=== PATIENT | female | born 1995 | race American Indian/Alaskan Native ===

== ENCOUNTER 2018-02-17 16:16 | Emergency (ER) | payer MEDICAID ==
[2018-02-17 16:32] VITALS: BP 137/86
--- NOTE | 2018-02-17 21:07 | Emergency Department Report ---
ED Female HPI - General Chief complaint: Pain General Stated complaint: CONSTIPATION, BLEEDING FROM ANUS AND PAIN WITH URI Time Seen by Provider: 02/17/18 20:39 Source: patient, family Mode of arrival: Ambulatory Limitations: No Limitations - History of Present Illness Initial comments: This is a 23-year-old female here complaining of constipation for 2 weeks. She is also complaining of pain after urinating. She reports she just started her menses today. Denies any nausea or vomiting. Denies any abdominal or back pain. No medication taken. Patient is a history of high blood pressure but denies being on any medication. Patient's here to be evaluated MD Complaint: dysuria, other (constipation) Onset/Timin -: week(s) Severity scale (0 -10): 0 Are you Now?: No Last Menstrual Period: 02/17/18 EDC: 11/24/18 Associated Symptoms: dysuria, other (constipation). denies: vaginal discharge, vaginal bleeding, abdominal pain, nausea/vomiting, fever/chills, headaches, loss of appetite, hematuria, rash, seizure, shortness of breath, syncope, weakness - Related Data Sexually active: No Previous Rx's Medication Instructions Recorded Last Taken Type Bisacodyl [Dulcolax] 10 mg PO ONCE 1 Days #2 tab 02/17/18 Unknown Rx Magnesium Citrate [Citrate of 300 ml PO ONCE 1 Days #1 bottle 02/17/18 Unknown Rx Magnesia] Nitrofurantoin [facility]/M-Cryst 100 mg PO Q12H 7 Days #14 capsule 02/17/18 Unknown Rx [Macrobid CAP] Allergies Allergy/AdvReac Type Severity Reaction Status Date / Time No Known Allergies Allergy Unverified 02/17/18 16:27 ED Review of Systems ROS: Stated complaint: CONSTIPATION, BLEEDING FROM ANUS AND PAIN WITH URI Other details as noted in HPI Constitutional: denies: chills, fever ENT: denies: throat pain, congestion Respiratory: denies: cough, shortness of breath, SOB with exertion, SOB at rest , wheezing Cardiovascular: denies: chest pain, palpitations, edema, syncope Gastrointestinal: constipation. denies: abdominal pain, nausea, vomiting, diarrhea, hematemesis, melena, hematochezia Genitourinary: dysuria. denies: urgency, frequency, hematuria, discharge, abnormal menses Musculoskeletal: denies: back pain, joint swelling, arthralgia, myalgia Skin: denies: rash, lesions Neurological: denies: headache, weakness ED Past Medical Hx - Past Medical History Previous Medical History?: Yes Hx Hypertension: Yes - Surgical History Past Surgical History?: No - Family History Family history: hypertension - Social History Smoking Status: Never Smoker Substance Use Type: Non Opiate Pain, Prescribed - Medications Home Medications: Home Medications Medication Instructions Recorded Confirmed Last Taken Type Bisacodyl [Dulcolax] 10 mg PO ONCE 1 Days #2 tab 02/17/18 Unknown Rx Magnesium Citrate [Citrate of 300 ml PO ONCE 1 Days #1 bottle 02/17/18 Unknown Rx Magnesia] Nitrofurantoin [facility]/M-Cryst 100 mg PO Q12H 7 Days #14 capsule 02/17/18 Unknown Rx [Macrobid CAP] ED Physical Exam - General Limitations: No Limitations General appearance: alert, in no apparent distress - Head Head exam: Present: atraumatic, normocephalic, normal inspection - Eye Eye exam: Present: normal appearance, PERRL, EOMI Pupils: Present: normal accommodation - ENT ENT exam: Present: normal exam, normal orophraynx, mucous membranes moist - Neck Neck exam: Present: normal inspection, full ROM. Absent: tenderness, lymphadenopathy - Respiratory Respiratory exam: Present: normal lung sounds bilaterally. Absent: respiratory distress, chest wall tenderness - Cardiovascular Cardiovascular Exam: Present: regular rate, normal rhythm, normal heart sounds. Absent: systolic murmur, diastolic murmur - GI/Abdominal GI/Abdominal exam: Present: soft, normal bowel sounds. Absent: distended, tenderness, guarding, rebound, rigid, organomegaly, mass, bruit, pulsatile mass , hernia - Extremities Exam Extremities exam: Present: normal inspection, full ROM, normal capillary refill , other (no clubbing, cyanosis or edema. Positive pulses all extremities and no neurovascular compromise). Absent: tenderness, pedal edema, joint swelling, calf tenderness - Back Exam Back exam: Present: normal inspection, full ROM. Absent: tenderness, CVA tenderness (R), CVA tenderness (L), muscle spasm, paraspinal tenderness, vertebral tenderness, rash noted - Neurological Exam Neurological exam: Present: alert, oriented X3, normal gait - Psychiatric Psychiatric exam: Present: normal affect, normal mood - Skin Skin exam: Present: warm, dry, intact, normal color. Absent: rash ED Course Vital Signs 02/17/18 02/17/18 16:28 23:10 Temperature 99 F Pulse Rate 70 64 Respiratory 18 16 Rate Blood Pressure 137/86 O2 Sat by Pulse 98 99 Oximetry - Reevaluation(s) Reevaluation #1: 02/17/18 23:02 Patient stable throughout ED course. She is able to tolerate oral liquids without any difficulties. ED Medical Decision Making - Lab Data Lab Results 02/17/18 Range/Units Unknown Urine Color Yellow (Yellow) Urine Turbidity Clear (Clear) Urine pH 5.0 (5.0-7.0) Ur Specific [place] 1.024 (1.003-1.030) Urine Protein 100 mg/dl (Negative) mg/dL Urine Glucose (UA) Neg (Negative) mg/dL Urine Ketones Neg (Negative) mg/dL Urine Blood Lg (Negative) Urine Nitrite Neg (Negative) Urine Bilirubin Neg (Negative) Urine Urobilinogen < 2.0 (<2.0) mg/dL Ur Leukocyte Esterase Lg (Negative) Urine WBC (Auto) > 182.0 H (0.0-6.0) /HPF Urine RBC (Auto) > 182.0 (0.0-6.0) /HPF U Epithel Cells (Auto) 1.0 (0-13.0) /HPF Urine Mucus Few /HPF Urine culture sent Patient started her menses today and she has large amount of urine and her blood - Radiology Data Radiology results: report reviewed Abdominal 2 view x-ray dictated by radiologist's report reviewed by myself. Please see report below. Patient: SO MOSS MR#: [id number] : 1995 Acct:[id number] Age/Sex: 23 / F ADM Date: 02/17/18 Loc: ED Attending Dr: Ordering Physician: CRISTOPHER BARNETT Date of Service: 02/17/18 Procedure(s): XR abdomen 2V Accession Number(s): [id number] cc: CRISTOPHER BARNETT Fluoro Time In Minutes: FINAL REPORT PROCEDURE: XR ABDOMEN 2V TECHNIQUE: Abdominal series, including supine and upright AP views. HISTORY: no bowel movement x 2 weeks COMPARISON: No prior studies are available for comparison. FINDINGS: Moderate amount of stool is seen scattered in large portions of the colon greater on the right side than the left. The patient may be constipated. No abnormal masses are seen. No air-fluid levels are identified. No evidence for bowel obstruction. No acute bony abnormalities are seen. IMPRESSION: Stool pattern as described. The patient may be constipated. No other abnormalities are identified.. Transcribed By: JEANN Dictated By: EMMANUELLE TORRES MD Electronically Authenticated By: EMMANUELLE TORRES MD Signed Date/Time: 02/17/182142 DD/ 42 TD/TT: 02/17/182142 - Medical Decision Making This is a 23-year-old female here complaining of constipation 2 weeks, painful urination. She denies any abdominal or back pain. Denies any vaginal bleeding or discharge. Patient reports that she started her menses today. Patient is here to be evaluated. She does not have a primary care physician Patient was screened and evaluated by myself. Physical exam normal except for distended abdomen but no other abnormality. Abdominal x-ray 2 views dictated by radiologist report reviewed by myself and shows constipation without any bowel obstruction. Stool is seen scattered in large portion of the colon greater on the right than the left otherwise no other ophthalmology seen. Urinalysis shows large amount of blood and patient is on her menses, large amount of leukocyte Estrace, positive protein, large amount of white blood cell. Urine culture sent. I discussed urinalysis and CT scan results the patient and also diagnosis and she voiced understanding. A/P Clinical Impression: 1: Acute cystitis with hematuria-patient is currently on her menses. Will discharge home on Macrobid. For all to primary care 2:Dysuria-positive UTI per urinalysis and culture sent. 3: Constipation-seen on abdominal x-ray 2 views. Tolerated fluids well, patient will be discharged home on Dulcolax tablets and magnesium citrate. Patient encouraged to increase fiber in her diet and increase her fluid intake. She will be referred to top precipitator operator helper Patient educated on diagnosis, medication, urinalysis findings, x-ray findings, high fiber diet, increase fluid intake ,treatment plan and she voiced understanding. Patient is stable and discharged home in stable condition with her family member. Vital signs are stable and she is afebrile, I discussed the patient that if symptoms worsen to return to the emergency room otherwise to follow-up with her primary care physician and top precipitator operator helper in 2 days. She voiced understanding. Patient discharged home with prescription for magnesium citrate , Dulcolax tablets and Macrobid. - Differential Diagnosis bowel obstruction, constipation, urinary tract infection Critical care attestation.: If time is entered above; I have spent that time in minutes in the direct care of this critically ill patient, excluding procedure time. ED Disposition Clinical Impression: Acute cystitis with hematuria, Dysuria Constipation Qualifiers: Constipation type: unspecified constipation type Qualified Code(s): K59.00 - Constipation, unspecified Disposition: DC- TO HOME OR SELFCARE Is pt being admited?: No Does the pt Need Aspirin: No Condition: Stable Instructions: Constipation (ED), Urinary Tract Infection in Women (ED), High Fiber Diet (ED), Dysuria (ED) Additional Instructions: Please increase her fluid intake. Take Dulcolax and magnesium citrate for constipation Take Macrobid for urinary tract infection See discharge instruction on high-fiber diet Follow-up with top precipitator operator helper regarding constipation Follow up with Primary care physician in 2 days. Return to the emergency room, if his symptoms worsen Prescriptions: Bisacodyl [Dulcolax] 10 mg PO ONCE 1 Days #2 tab Magnesium Citrate [Citrate of Magnesia] 300 ml PO ONCE 1 Days #[address] [facility]M-Cryst [Macrobid CAP] 100 mg PO Q12H 7 Days #14 capsule Referrals: PRIMARY CAREMD [Primary Care Provider] - 02/19/18 [facility] [Outside] - 02/19/18 [facility] [Provider Group] - 02/19/18 Forms: Work/School Release Form(ED)
[2018-02-17 21:42] LABS: Bilirubin,Urine NEG (Negative); Blood,Urine LG (Negative); Color,Urine Yellow (Yellow); Mucus,Urine FEW /HPF; Urobilinogen,Urine < 2.0 mg/dL (<2.0)
[2018-02-17 21:45] LABS: RBC,Urine > 182.0 /HPF (0.0-6.0); WBC,Urine > 182.0 /HPF (0.0-6.0)
--- NOTE | 2018-02-17 21:48 | XRay Report ---
FINAL REPORT PROCEDURE: XR ABDOMEN 2V TECHNIQUE: Abdominal series, including supine and upright AP views. HISTORY: no bowel movement x 2 weeks COMPARISON: No prior studies are available for comparison. FINDINGS: Moderate amount of stool is seen scattered in large portions of the colon greater on the right side than the left. The patient may be constipated. No abnormal masses are seen. No air-fluid levels are identified. No evidence for bowel obstruction. No acute bony abnormalities are seen. IMPRESSION: Stool pattern as described. The patient may be constipated. No other abnormalities are identified..
== END 2018-02-17 23:10 | disposition home or self-care (01) ==
LOC: ED 16:16
DX: N30.01 Acute cystitis with hematuria (principal); K59.00 Constipation, unspecified; I10 Essential (primary) hypertension
CPT/HCPCS: 74019; 81001; 87086

== ENCOUNTER 2018-03-10 17:19 | Emergency (ER) | payer MEDICAID ==
[2018-03-10 17:44] VITALS: BP 144/95
[2018-03-10 18:14] LABS: Bilirubin,Urine NEG (Negative); Blood,Urine NEG (Negative); Color,Urine Yellow (Yellow); Mucus,Urine FEW /HPF; Protein,Urine <15 mg/dL mg/dL (Negative); Urobilinogen,Urine < 2.0 mg/dL (<2.0)
[2018-03-10 18:28] LABS: HCG Qualitative,Urine Negative (Negative)
--- NOTE | 2018-03-10 21:13 | Emergency Department Report ---
ED Female HPI - General Chief complaint: Urogenital-Female Stated complaint: BURNING SENSATION W/ URINATION Time Seen by Provider: 03/10/18 21:13 Source: patient Mode of arrival: Ambulatory Limitations: No Limitations - History of Present Illness Initial comments: This is a 23-year-old -[place] female who presents for treatment of chlamydia. Patient states her boyfriend was diagnosed with chlamydia earlier today at a different hospital. She is requesting treatment for recent exposure. Patient denies vaginal discharge, low back pain, pelvic pain, frequency, urgency, dysuria, and fever. MD Complaint: possible STD Onset/Timin -: days(s) Severity: mild Severity scale (0 -10): 0 Improves with: none Worsens with: none Are you Now?: No Last Menstrual Period: 02/24/18 EDC: 12/01/18 Associated Symptoms: denies other symptoms - Related Data Sexually active: Yes : 1 Para: 1 A: 0 Previous Rx's Medication Instructions Recorded Last Taken Type Bisacodyl [Dulcolax] 10 mg PO ONCE 1 Days #2 tab 02/17/18 Unknown Rx Magnesium Citrate [Citrate of 300 ml PO ONCE 1 Days #1 bottle 02/17/18 Unknown Rx Magnesia] Nitrofurantoin [facility]/M-Cryst 100 mg PO Q12H 7 Days #14 capsule 02/17/18 Unknown Rx [Macrobid CAP] Allergies Allergy/AdvReac Type Severity Reaction Status Date / Time No Known Allergies Allergy Unverified 02/17/18 16:27 ED Review of Systems ROS: Stated complaint: BURNING SENSATION W/ URINATION Other details as noted in HPI Constitutional: denies: chills, fever Respiratory: denies: cough, shortness of breath, wheezing Cardiovascular: denies: chest pain, palpitations Gastrointestinal: denies: abdominal pain, nausea, vomiting, diarrhea Musculoskeletal: denies: back pain, joint swelling, arthralgia, myalgia Neurological: denies: headache, weakness, paresthesias Psychiatric: denies: anxiety, depression ED Past Medical Hx - Past Medical History Previous Medical History?: No Hx Hypertension: Yes - Surgical History Past Surgical History?: No - Social History Smoking Status: Never Smoker Substance Use Type: None - Medications Home Medications: Home Medications Medication Instructions Recorded Confirmed Last Taken Type Bisacodyl [Dulcolax] 10 mg PO ONCE 1 Days #2 tab 02/17/18 Unknown Rx Magnesium Citrate [Citrate of 300 ml PO ONCE 1 Days #1 bottle 02/17/18 Unknown Rx Magnesia] Nitrofurantoin [facility]/M-Cryst 100 mg PO Q12H 7 Days #14 capsule 02/17/18 Unknown Rx [Macrobid CAP] ED Physical Exam - General Limitations: No Limitations General appearance: alert, in no apparent distress - Respiratory Respiratory exam: Present: normal lung sounds bilaterally. Absent: respiratory distress - Cardiovascular Cardiovascular Exam: Present: regular rate, normal rhythm. Absent: systolic murmur, diastolic murmur, rubs, gallop - GI/Abdominal GI/Abdominal exam: Present: soft, normal bowel sounds. Absent: organomegaly, mass - Back Exam Back exam: Present: normal inspection. Absent: CVA tenderness (R), CVA tenderness (L) - Neurological Exam Neurological exam: Present: alert, oriented X3, normal gait - Psychiatric Psychiatric exam: Present: normal affect, normal mood - Skin Skin exam: Present: warm, dry, intact, normal color. Absent: rash ED Course Vital Signs 03/10/18 17:41 Temperature 98.3 F Pulse Rate 63 Respiratory 16 Rate Blood Pressure 144/95 O2 Sat by Pulse 100 Oximetry ED Medical Decision Making - Medical Decision Making This is a 23-year-old -[place] female who presents for treatment of chlamydia. Patient was examined by me. Vitals are stable and in no acute distress. Urinalysis and urine hcg obtained and unremarkable. Empirically treated with Rocephin 250 mg IM and azithromycin 1 g by mouth. Discharged home in stable condition. Discussed prevention options. F/U with PCP or Health Department. Critical care attestation.: If time is entered above; I have spent that time in minutes in the direct care of this critically ill patient, excluding procedure time. ED Disposition Clinical Impression: Exposure to STD Disposition: DC-01 TO HOME OR SELFCARE Is pt being admited?: No Does the pt Need Aspirin: No Condition: Stable Instructions: Safe Sex (ED), Sexually Transmitted Diseases (ED) Additional Instructions: Avoid drinking alcohol for 24 hours. Continue safe sexual intercourse. Follow up with Primary Care Provider or health department. Referrals: [facility] [Outside] - 3-5 Days [facility] [Outside] - 3-5 Days [facility] [Outside] - 3-5 Days Time of Disposition: 21:52 Print Language: NAMIBIAN
[2018-03-10] MEDS ORDERED: ZITHROMAX PO ONE (21:52)
[2018-03-10] MEDS ORDERED: ROCEPHIN IM ONE (21:52)
[2018-03-10] MEDS ORDERED: XYLOCAINE 1% MPF 5 mL INFILTRATI ONE (21:52)
== END 2018-03-10 22:30 | disposition home or self-care (01) ==
LOC: ED 17:19
DX: Z20.2 Contact with and (suspected) exposure to infections with a predominantly sexual mode of transmission (principal); I10 Essential (primary) hypertension
CPT/HCPCS: 81001; 81025; 96372; 99283; J0696

== ENCOUNTER 2019-03-10 14:20 | Outpatient (CLI) | payer OTHER ==
[2019-03-10 15:19] VITALS: BP 125/71
[2019-03-10] MEDS ORDERED: LACTATED RINGERS 1,000 ML ONE (15:28)
[2019-03-10] MEDS ORDERED: LACTATED RINGERS 500 ML IV ONE (16:16)
[2019-03-10 16:47] LABS: Bacteria,Urine 1+ /HPF (Negative); Bilirubin,Urine NEG (Negative); Blood,Urine NEG (Negative); Color,Urine Yellow (Yellow); Protein,Urine <15 mg/dL mg/dL (Negative); Urobilinogen,Urine < 2.0 mg/dL (<2.0)
[2019-03-10] MEDS ORDERED: LACTATED RINGERS 1,000 ML IV SCH (17:00)
--- NOTE | 2019-03-10 20:40 | Ultrasound Report ---
US OB limited, US OB BPP wo non-stress INDICATION: labor. Clinical gestational age of 36 weeks. COMPARISON: None available. FINDINGS: A single live intrauterine is noted with a heart rate of 158 bpm. The placenta is in a fund al position and appears unremarkable. Presentation is cephalic. The amniotic fluid index is normal an d measures 7-8 cm. The BPP is 8/8. IMPRESSION: Single live intrauterine with a BPP of 8/8. Signer Name: Nikhil Armas MD Signed: 03/10/2019 8:35 PM Workstation Name: [id number]
== END 2019-03-10 20:40 | disposition home or self-care (01) ==
LOC: EEVIPCON 14:20 → TRG 14:20
PROVIDERS: ATTEND Obstetrics & Gynecology
DX: O62.9 Abnormality of forces of labor, unspecified (principal); O13.3 Gestational [pregnancy-induced] hypertension without significant proteinuria, third trimester; Z3A.36 36 weeks gestation of pregnancy
CPT/HCPCS: 59025; 76815; 76819; 81001; 96360; 96361; J7120

== ENCOUNTER 2019-03-16 01:06 | Outpatient (CLI) | payer OTHER ==
[2019-03-16 01:58] LABS: Bilirubin,Urine NEG (Negative); Blood,Urine NEG (Negative); Color,Urine Yellow (Yellow); Mucus,Urine FEW /HPF; Protein,Urine <15 mg/dL mg/dL (Negative)
[2019-03-16] MEDS ORDERED: LACTATED RINGERS 1,000 ML IV ONE (02:27)
[2019-03-16 03:06] VITALS: BP 133/85
[2019-03-16 03:14] LABS: Amphetamine Screen,Urine PRESUMPTIVE NEGATIVE; Benzodiazepines Screen,Urine PRESUMPTIVE NEGATIVE; Cannabinoid Screen,Urine PRESUMPTIVE NEGATIVE; Cocaine Screen,Urine PRESUMPTIVE NEGATIVE; Methadone Screen,Urine PRESUMPTIVE NEGATIVE; Opiate Screen,Urine PRESUMPTIVE NEGATIVE
--- NOTE | 2019-03-16 04:00 | Ultrasound Report ---
Limited OB ultrasound for amniotic fluid volume FINDINGS: The CHELY is normal at 13.5 cm. Single fetus is identified in vertex presentation. hear t rate is 142 bpm. Signer Name: Rajan Dunaway MD Signed: 03/16/2019 3:56 AM Workstation Name: [id number]
--- NOTE | 2019-03-16 07:26 | Ultrasound Report ---
Biophysical profile FINDINGS: breathing, spontaneous motion, tone and amniotic fluid volume all show a score of 2 f or a total of 8/8. heart rate is 142 bpm. Signer Name: Rajan Dunaway MD Signed: 03/16/2019 7:22 AM Workstation Name: [id number]
== END 2019-03-16 04:32 ==
LOC: TRG 01:06 → EEVIPCON 01:06 → LD 01:18 → TRG 04:32
PROVIDERS: ATTEND Obstetrics & Gynecology
DX: O62.9 Abnormality of forces of labor, unspecified (principal); O13.3 Gestational [pregnancy-induced] hypertension without significant proteinuria, third trimester; Z3A.37 37 weeks gestation of pregnancy
CPT/HCPCS: 59025; 76815; 76819; 80307; 81001; 87086; 96360; J7120

== ENCOUNTER 2019-03-29 16:37 | Inpatient (IN) | payer OTHER ==
[2019-03-29] MEDS ORDERED: BRETHINE IVP PRN (17:22)
[2019-03-29] MEDS ORDERED: XYLOCAINE 2% INFILTRATI ONE (17:22)
[2019-03-29] MEDS ORDERED: MINERAL OIL PO PRN (17:22)
[2019-03-29] MEDS ORDERED: SUBLIMAZE IV PRN (17:22)
[2019-03-29] MEDS ORDERED: BRETHINE SUB-Q PRN (17:22)
[2019-03-29] MEDS ORDERED: ZOFRAN IV PRN (17:22)
[2019-03-29] MEDS ORDERED: AMPICILLIN/NS 2 GM/100 ML 2 GM/100 ML BAG IV ONE (17:22)
--- NOTE | 2019-03-29 17:51 | History and Physical Report ---
History of Present Illness Date of examination: 03/29/19 Date of admission: 03/29/2019 Chief complaint: IOL secondary to CHTN History of present illness: 24 yo @ 39 wks gestation who was sent from [facility] with reports of H/As, dizziness, swelling around left eye and seeing spots in visual garza x 1 night. Reports that prior to incarceration she received PNC at [facility], records not available. Her has been complicated by CHTN and GBS positive status. She reports she was taking Lisinopril 10 mg oral once daily, which was changed to labetelol 100 po BID after incarceration. 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: chlamydia Family/Genetic History: diabetes (Aunt), hypertension (mother and MGM), stroke (MGM and mother), cancer (PGM - breast Ca) Social history: full code - Obstetrical History Expected Date of Delivery: 04/04/19 Actual Gestation: 39 Week(s) 1 Day(s) : 2 Para: 1 Hx # Term Pregnancies: 1 Number of Pregnancies: 0 Spontaneous Abortions: 0 Induced : 0 Number of Living Children: 1 #1 Infant Gender: Female year: Birthweight: 3.005 kg Method of Delivery: Vaginal Gestational age at delivery: 39 (IOL secondary to HTN) Complications: none Medications and Allergies Allergies Allergy/AdvReac Type Severity Reaction Status Date / Time No Known Allergies Allergy Verified 03/16/19 01:35 Home Medications Medication Instructions Recorded Confirmed Last Taken Type Labetalol [Labetalol 100mg TAB] 100 mg PO BID 03/16/19 03/16/19 03/15/19 History Active Meds: Active Medications Butorphanol Tartrate (Stadol) 2 mg IV Q2H PRN PRN Reason: Pain , Severe (7-10) Ephedrine Sulfate (Ephedrine Sulfate) 10 mg IV Q2M PRN PRN Reason: Hypotension Fentanyl (Sublimaze) 100 mcg IV Q2H PRN PRN Reason: Labor Pain Oxytocin/Sodium Chloride (Pitocin/Ns 20 Unit/1000ml Drip) 20 units in 1,000 mls @ 125 mls/hr IV DIRECT SHANIQUE Oxytocin/Sodium Chloride (Pitocin/Ns 30 Unit/500ml) 30 units in 500 mls @ 2 mls/hr IV TITR SHANIQUE; Protocol Lactated Ringer's (Lactated Ringers) 1,000 mls @ 125 mls/hr IV DIRECT SHANIQUE Ampicillin Sodium (Ampicillin/Ns 2 Gm/100 Ml) 2 gm in 100 mls @ 100 mls/hr IV ONCE ONE; Protocol Stop: 03/29/19 18:21 Ampicillin Sodium (Ampicillin/Ns 1 Gm/50 Ml) 1 gm in 50 mls @ 100 mls/hr IV Q4HR SHANIQUE; Protocol Mineral Oil (Mineral Oil) 30 ml PO QHS PRN PRN Reason: Constipation Ondansetron HCl (Zofran) 4 mg IV Q8H PRN PRN Reason: Nausea And Vomiting Terbutaline Sulfate (Brethine) 0.25 mg SUB-Q ONCE PRN PRN Reason: Hyperstimulation/Hypertonicity Terbutaline Sulfate (Brethine) 0.25 mg IVP ONCE PRN PRN Reason: Hyperstimulation/Hypertonicity Review of Systems All systems: negative - Vital Signs Vital signs: Vital Signs Pulse BP 80 135/78 03/29/19 16:49 03/29/19 16:49 Temp Pulse Resp BP Pulse Ox 80 135/78 03/29/19 16:49 03/29/19 16:49 - Physical Exam Breasts: Positive: deferred Cardiovascular: Regular rate Lungs: Positive: Normal air movement Abdomen: Positive: other (gravid) Uterus: Positive: other (S=D) Extremities: Positive: normal Deep Tendon Reflex Grade: Normal +2 - Obstetrical FHR: category 1 Uterine Contraction Monitor Mode: External Cervical Dilatation: 3 Cervical Effacement Percentage: 60 station: -3 Uterine Contraction Frequency (min): 6-9 mins Uterine Contraction Pattern: Irregular Uterine Tone Measurement Phase: Resting Uterine Contraction Intensity: Mild Results All other labs normal. Assessment and Plan - Patient Problems (1) 39 weeks gestation of Current Visit: Yes Status: Acute Plan to address problem: Admit to [facility] for IOL secondary to CHTN GBS prophylaxis per policy Cervidil 10 mg vaginal x12 as tolerated Pain medication as desired Anticipate (2) Chronic hypertension affecting Current Visit: Yes Status: Acute Plan to address problem: Serial B/P's q hr Notify provider is B/Ps >160/110
[2019-03-29] MEDS ORDERED: PITOCin/NS 20 UNIT/1000ML DRIP 20 UNITS/1,000 ML BAG IV SCH (18:00)
[2019-03-29] MEDS ORDERED: PITOCin/NS 30 UNIT/500ML 30 UNITS/500 ML BAG IV SCH (18:00)
[2019-03-29] MEDS ORDERED: CERVIDIL VG ONE (18:52)
[2019-03-29] MEDS: LACTATED RINGERS 1,000 ML IV SCH (19:06)
[2019-03-29 19:50] LABS: Basophils % (Auto) 0.4 % (0.0-1.8); Eosinophils % (Auto) 0.7 % (0.0-4.3); Hematocrit 27.9 % (30.3-42.9); Hemoglobin 8.6 gm/dl (10.1-14.3); Lymphocytes # (Auto) 1.4 K/mm3 (1.2-5.4); Lymphocytes % (Auto) 23.3 % (13.4-35.0); Mean Corpuscular HGB Conc 31 % (30-34); Monocytes # (Auto) 0.6 K/mm3 (0.0-0.8); Monocytes % (Auto) 9.9 % (0.0-7.3)
[2019-03-29 20:04] LABS: Mean Corpuscular Volume 63 fl (79-97)
[2019-03-29 20:13] LABS: Alanine Aminotransferase 5 units/L (7-56); Uric Acid 3.5 mg/dL (3.5-7.6)
[2019-03-29 20:14] LABS: Hepatitis C Virus Antibody Non-Reactive (NonReactive)
[2019-03-29 22:56] LABS: Platelet Count 120 K/mm3 (140-440)
[2019-03-29] MEDS: AMPICILLIN/NS 1 GM/50 ML 1 GM/50 ML BAG IV SCH (23:35)
[2019-03-30] MEDS: STADOL IV PRN ×2 (03:31→08:49)
[2019-03-30] MEDS: AMPICILLIN/NS 1 GM/50 ML 1 GM/50 ML BAG IV SCH ×3 (03:42→10:41)
[2019-03-30 05:41] LABS: Bilirubin,Urine NEG (Negative); Blood,Urine NEG (Negative); Color,Urine Straw (Yellow); Protein,Urine <15 mg/dL mg/dL (Negative); Urobilinogen,Urine < 2.0 mg/dL (<2.0)
[2019-03-30 05:48] LABS: Amphetamine Screen,Urine PRESUMPTIVE NEGATIVE; Benzodiazepines Screen,Urine PRESUMPTIVE NEGATIVE; Cannabinoid Screen,Urine PRESUMPTIVE NEGATIVE; Cocaine Screen,Urine PRESUMPTIVE NEGATIVE; Methadone Screen,Urine PRESUMPTIVE NEGATIVE; Opiate Screen,Urine PRESUMPTIVE NEGATIVE
--- NOTE | 2019-03-30 10:15 | Progress Note ---
Assessment and Plan A: IUP @ 39 1/7 weeks Category I Tracing CHTN GBS Positive P: AROM Start Pitocin Augmentation Continue GBS Prophylaxis Subjective - Subjective Date of service: 03/30/19 Patient reports: movement normal, contractions Objective - Vital Signs Vital Signs: Vital Signs - 12hr 03/29/19 03/30/19 03/30/19 22:42 00:20 01:20 Temperature Pulse Rate 60 63 76 Blood Pressure 123/81 123/71 136/87 03/30/19 03/30/19 03/30/19 02:21 03:21 03:26 Temperature Pulse Rate 54 L 59 L 77 Blood Pressure 152/95 174/101 159/96 03/30/19 03/30/19 03/30/19 03:37 04:22 04:31 Temperature 98.6 F Pulse Rate 75 61 Blood Pressure 143/83 124/67 03/30/19 03/30/19 03/30/19 05:20 06:21 07:06 Temperature Pulse Rate 57 L 49 L 51 L Blood Pressure 119/72 141/93 138/95 03/30/19 03/30/19 03/30/19 07:21 07:51 08:20 Temperature 97.6 F Pulse Rate 50 L 68 Blood Pressure 140/93 146/97 03/30/19 10:08 Temperature Pulse Rate 78 Blood Pressure 134/90 - Exam Breasts: normal Cardiovascular: Regular rate Lungs: Clear to auscultation, Normal air movement Abdomen: Present: normal appearance, soft, normal bowel sounds Uterus: Present: normal, firm, fundal height above umbilicus FHR: category 1 Uterine Contraction Monitor Mode: External Cervical Dilatation: 3.5 (AROM of a moderate amount @ 1006) Cervical Effacement Percentage: 60 station: -2 Uterine Contraction Pattern: Irregular Uterine Tone Measurement Phase: Resting Uterine Contraction Intensity: Moderate Extremities: normal - Labs Labs: Abnormal Labs 03/29/19 03/29/19 19:27 19:27 Hgb 8.6 L Hct 27.9 L MCV 63 L MCH 20 L RDW 17.0 H Plt Count 120 L [place] % (Auto) 9.9 H Creatinine 0.5 L ALT 5 L Laboratory Results - last 24 hr 03/29/19 03/29/19 03/29/19 19:15 19:26 19:26 WBC RBC Hgb Hct MCV MCH MCHC RDW Plt Count Lymph % (Auto) [place] % (Auto) Eos % (Auto) Baso % (Auto) Lymph # [place] # Eos # Baso # Seg Neutrophils % Seg Neutrophils # Creatinine Estimated GFR Uric Acid AST ALT Lactate Dehydrogenase Urine Color Urine Turbidity Urine pH Ur Specific [place] Urine Protein Urine Glucose (UA) Urine Ketones Urine Blood Urine Nitrite Urine Bilirubin Urine Urobilinogen Ur Leukocyte Esterase Urine WBC (Auto) Urine RBC (Auto) U Epithel Cells (Auto) Urine Opiates Screen Urine Methadone Screen Ur Barbiturates Screen Ur Phencyclidine Scrn Ur Amphetamines Screen U Benzodiazepines Scrn Urine Cocaine Screen U Marijuana (THC) Screen Drugs of Abuse Note Hep Bs Antigen Non-reactive Hepatitis C Antibody Non-reactive HIV 1&2 Antibody Rapid HIV P24 Antigen Rubella IgG Antibody Immune Blood Type B POSITIVE Antibody Screen Negative 03/29/19 03/29/19 03/29/19 19:27 19:27 19:27 WBC 5.8 RBC 4.40 Hgb 8.6 L Hct 27.9 L MCV 63 L MCH 20 L MCHC 31 RDW 17.0 H Plt Count 120 L Lymph % (Auto) 23.3 [place] % (Auto) 9.9 H Eos % (Auto) 0.7 Baso % (Auto) 0.4 Lymph # 1.4 [place] # 0.6 Eos # 0.0 Baso # 0.0 Seg Neutrophils % 65.7 Seg Neutrophils # 3.8 Creatinine 0.5 L Estimated GFR > 60 Uric Acid 3.5 AST 12 ALT 5 L Lactate Dehydrogenase 149 Urine Color Urine Turbidity Urine pH Ur Specific [place] Urine Protein Urine Glucose (UA) Urine Ketones Urine Blood Urine Nitrite Urine Bilirubin Urine Urobilinogen Ur Leukocyte Esterase Urine WBC (Auto) Urine RBC (Auto) U Epithel Cells (Auto) Urine Opiates Screen Urine Methadone Screen Ur Barbiturates Screen Ur Phencyclidine Scrn Ur Amphetamines Screen U Benzodiazepines Scrn Urine Cocaine Screen U Marijuana (THC) Screen Drugs of Abuse Note Hep Bs Antigen Hepatitis C Antibody HIV 1&2 Antibody Rapid Non react HIV P24 Antigen Non react Rubella IgG Antibody Blood Type Antibody Screen 03/30/19 03/30/19 03:30 03:30 WBC RBC Hgb Hct MCV MCH MCHC RDW Plt Count Lymph % (Auto) [place] % (Auto) Eos % (Auto) Baso % (Auto) Lymph # [place] # Eos # Baso # Seg Neutrophils % Seg Neutrophils # Creatinine Estimated GFR Uric Acid AST ALT Lactate Dehydrogenase Urine Color Straw Urine Turbidity Clear Urine pH 7.0 Ur Specific [place] 1.005 Urine Protein <15 mg/dl Urine Glucose (UA) Neg Urine Ketones Neg Urine Blood Neg Urine Nitrite Neg Urine Bilirubin Neg Urine Urobilinogen < 2.0 Ur Leukocyte Esterase Tr Urine WBC (Auto) 3.0 Urine RBC (Auto) 1.0 U Epithel Cells (Auto) 2.0 Urine Opiates Screen Presumptive negative Urine Methadone Screen Presumptive negative Ur Barbiturates Screen Presumptive negative Ur Phencyclidine Scrn Presumptive negative Ur Amphetamines Screen Presumptive negative U Benzodiazepines Scrn Presumptive negative Urine Cocaine Screen Presumptive negative U Marijuana (THC) Screen Presumptive negative Drugs of Abuse Note Disclamer Hep Bs Antigen Hepatitis C Antibody HIV 1&2 Antibody Rapid HIV P24 Antigen Rubella IgG Antibody Blood Type Antibody Screen
[2019-03-30] MEDS: LACTATED RINGERS 1,000 ML IV SCH (10:42)
[2019-03-30] MEDS ORDERED: PITOCin/NS 30 UNIT/500ML 30 UNITS/500 ML BAG IV SCH (11:00)
[2019-03-30] MEDS ORDERED: MARCAINE 0.25% INFILTRATI ONE (11:20)
--- NOTE | 2019-03-30 11:41 | Anesthesia Consultation ---
Anesthesia Consult and Med Hx Date of service: 03/30/19 - Airway Anesthetic Teeth Evaluation: Good ROM Head & Neck: Adequate Mental/Hyoid Distance: Adequate Mallampati Class: Class II - Pulmonary Exam CTA: Yes - Cardiac Exam Cardiac Exam: RRR - Pre-Operative Health Status ASA Pre-Surgery Classification: ASA2, Emergency Proposed Anesthetic Plan: Epidural - Pulmonary Hx Asthma: No - Cardiovascular System Hx Hypertension: Yes (CHTN diagnosed at age 21, Pt has headache, dizzziness, and visiual changes) - Central Nervous System Hx Seizures: No Hx Psychiatric Problems: No - Endocrine Hx Renal Disease: No Hx Hypothyroidism: No Hx Hyperthyroidism: No - Hematic Hx Anemia: No Hx Sickle Cell Disease: No - Other Systems Hx Alcohol Use: No
[2019-03-30] MEDS ORDERED: NARCAN 2 MG/2 ML IV PRN (11:42)
[2019-03-30] MEDS ORDERED: fentaNYL-BUPIV 2 MCG/ML-0.125% 200 MCG/100 ML BAG EPIDURAL SCH (12:00)
[2019-03-30] MEDS ORDERED: DULCOLAX PR PRN (17:13)
[2019-03-30] MEDS ORDERED: TUCKS PAD TP PRN (17:13)
[2019-03-30] MEDS ORDERED: BENADRYL PO PRN (17:13)
[2019-03-30] MEDS ORDERED: LANSINOH TP PRN (17:13)
--- NOTE | 2019-03-30 17:26 | Procedure Note ---
OB Delivery Note - Delivery Date of Delivery: 03/30/19 ( 1610) Surgeon: MARGOT CRENSHAW Estimated blood loss: other (250) - Vaginal Delivery presentation: vertex Delivery position: OA Intrapartum events: none (Inmate @ [employer] [facility]; Released during labor), other(please specify) (CHTN) Delivery induction: cervidil Delivery augmentation: rupture of membranes, pitocin Delivery monitor: external FHT, external uterine Route of delivery: Delivery placenta: spontaneous Delivery cord: nuchal cord, 3 umbilical vessels Episiotomy: none Delivery laceration: 2nd degree Delivery repair: vicryl Anesthesia: epidural Delivery comments: of a live 8'8 female infant over a 2nd degree perineal laceration under epidural anesthesia with Apgars of 8 and 9 at 1610 on 03/30/2019. Nuchal cord x 1 easily manually reduced on the perineum prior to the delivery of the anterior shoulder. Tight delivery of shoulders, delivered with routine maneuvers in under 30 seconds. directly to maternal abd/chest, skin to skin contact. Spontaneous delivery of placenta complete and intact with [place] side presenting at 1617. Fundus is firm and midline located 4 below the U. Lochia is scant. Delayed cord clamping and cutting; cord cut by the Father of the Baby. 2nd degree perineal laceration repaired with 2-[address]-1 under epidural anesthesia. GBS Prophylaxis x 5. Placenta discarded. - Infant A at 1 minute: 8 at 5 minutes: 9 Gender: Female (8'8)
[2019-03-30] MEDS ORDERED: SODIUM CHLORIDE FLUSH SYRINGE 10 ML IV NR (18:00)
[2019-03-30] MEDS: IBUPROFEN PO SCH (19:54)
[2019-03-30] MEDS: NORCO 5/325 PO PRN (22:32)
[2019-03-31] MEDS: NORMODYNE PO SCH ×3 (00:57→21:51)
[2019-03-31] MEDS ORDERED: INFED IM ONE (01:58)
[2019-03-31] MEDS: FEOSOL PO SCH ×3 (02:12→21:51)
[2019-03-31] MEDS: IBUPROFEN PO SCH ×5 (03:57→18:00)
[2019-03-31] MEDS: NORCO 5/325 PO PRN ×2 (05:31→21:52)
[2019-03-31 06:02] LABS: Hematocrit 24.4 % (30.3-42.9); Hemoglobin 7.5 gm/dl (10.1-14.3)
--- NOTE | 2019-03-31 11:07 | Progress Note ---
Assessment and Plan A: PPD#1 s/p Asymptomatic anemia CHTN; Labetalol 100mg BID; labile B/P 117/75-154/97 Stable P: Routine PP orders InFed 100mg IM x1 dose Continue Ferrous sulfate 325mg PO BID MD to manage CHTN Anticipate discharge home in 24-48 hrs (Released from [facility]) Subjective - Subjective Date of service: 03/31/19 Principal diagnosis: PPD#1 s/p ; CHTN Interval history: See H&P and delivery note Patient reports: appetite normal, voiding normally, pain well controlled, flatus, ambulating normally, no bowel movement [place]: doing well, bottle feeding Objective - Vital Signs Latest vital signs: Vital Signs Temp Pulse Resp BP BP Pulse Ox 03/31/19 09:29 97.8 F 86 18 140/97 98 03/31/19 04:56 97.7 F 80 18 117/75 98 03/31/19 01:54 97.6 F 70 18 129/78 99 03/31/19 00:57 82 142/84 03/30/19 21:20 98.1 F 82 18 147/82 99 03/30/19 18:47 75 143/90 03/30/19 18:34 96 H 143/84 03/30/19 17:59 96 H 147/85 03/30/19 17:47 109 H 140/80 03/30/19 17:32 88 154/90 03/30/19 17:17 105 H 144/99 03/30/19 17:05 76 137/92 03/30/19 16:47 100 H 149/91 03/30/19 16:32 101 H 137/85 03/30/19 16:31 97.8 F 12 03/30/19 16:15 106 H 151/85 03/30/19 15:54 97.6 F 18 03/30/19 15:47 65 140/87 03/30/19 15:16 85 148/93 03/30/19 14:46 62 142/96 03/30/19 14:17 77 130/90 03/30/19 13:46 72 128/80 03/30/19 13:16 55 L 138/89 03/30/19 12:46 61 137/94 03/30/19 12:16 55 L 131/84 03/30/19 11:45 63 135/85 03/30/19 11:43 71 134/83 03/30/19 11:41 72 147/94 03/30/19 11:39 66 159/99 03/30/19 11:37 75 151/90 03/30/19 11:35 65 149/88 03/30/19 11:33 63 149/82 03/30/19 11:31 67 151/89 03/30/19 11:29 68 163/112 03/30/19 11:27 80 159/99 03/30/19 11:20 67 143/92 03/30/19 11:10 97.7 F Intake and Output 03/30/19 03/31/19 03/31/19 23:59 07:59 15:59 Intake Total 360 Output Total 500 Balance -500 360 Intake: Intake, Free Water 360 Output: Urine 500 Void 500 Other: Total, Output Amount 500 # Voids Void 1 Estimated Blood Loss 250 - Exam Breasts: Present: normal Cardiovascular: Present: Regular rate, Normal S1, Normal S2, No murmurs Lungs: Present: Clear to auscultation, Normal air movement Abdomen: Present: normal appearance, soft, normal bowel sounds. Absent: distention Vulva: both: laceration/episiotomy (2nd degree; well approximated) Uterus: Present: firm, fundal height at umbilicus Extremities: Present: normal Deep Tendon Reflex Grade: Normal +2 - Labs Labs: Abnormal lab results 03/31/19 Range/Units 05:32 Hgb 7.5 L (10.1-14.3) gm/dl Hct 24.4 L (30.3-42.9) %
[2019-04-01] MEDS: NORCO 5/325 PO PRN ×2 (04:42→14:16)
[2019-04-01] MEDS: IBUPROFEN PO SCH ×3 (06:00→11:17)
[2019-04-01] MEDS: NORMODYNE PO SCH (09:45)
[2019-04-01] MEDS: FEOSOL PO SCH (09:45)
--- NOTE | 2019-04-01 10:05 | Progress Note ---
Assessment and Plan - Patient Problems (1) Status post normal vaginal delivery Current Visit: Yes Status: Acute (2) Chronic hypertension affecting Current Visit: Yes Status: Acute Plan to address problem: Asymptomatic Blood pressures stable Continue Labetalol 100mg PO BID (3) Anemia due to blood loss, acute Current Visit: Yes Status: Acute Plan to address problem: Asymptomatic Continue iron therapy (4) Encounter for other general counseling and advice on contraception Current Visit: Yes Status: Acute Plan to address problem: Contraceptive counseling provided in detail Patient prefers depo provera (5) Encounter for initial prescription of injectable contraceptive Current Visit: Yes Status: Acute Subjective - Subjective Date of service: 04/01/19 Principal diagnosis: PPD #2; s/p ; CHTN Interval history: see H&p, OB Progress Note, OB Delivery Procedure Note, and 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 Progress Note Patient reports: appetite normal, voiding normally, pain well controlled, ambulating normally, other (denies headache, visual disturbances or RUQ pain), no dizzy ambulation [place]: doing well Objective - Vital Signs Latest vital signs: Vital Signs Temp Pulse Resp BP BP Pulse Ox 04/01/19 09:45 69 126/87 04/01/19 07:23 97.7 F 60 20 134/82 99 04/01/19 01:36 97.9 F 81 18 126/80 97 03/31/19 21:51 76 137/83 03/31/19 17:40 97.9 F 77 16 133/73 98 03/31/19 12:54 97.6 F 76 16 138/95 99 03/31/19 11:37 83 129/86 03/31/19 11:35 83 129/86 Intake and Output 03/31/19 04/01/19 04/01/19 23:59 07:59 15:59 Intake Total 620 360 Balance 620 360 Intake: Oral 620 Intake, Free Water 360 Other: Total, Intake Amount 620 # Voids Void 2 - Exam Cardiovascular: Present: Regular rate Lungs: Present: Clear to auscultation, Normal air movement Abdomen: Present: normal appearance, soft Vulva: both: laceration/episiotomy (well approximated) Uterus: Present: normal, firm, fundal height below umbilicus Extremities: Present: normal Comments: small lochia
--- NOTE | 2019-04-01 10:13 | Discharge Summary ---
Providers - Providers Date of Admission: 03/29/19 17:23 Date of discharge: 04/01/19 Attending physician: ABRAHAM GALINDO MD Primary care physician: ABRAHAM GALINDO MD Hospitalization Reason for admission: induction of labor, IUP at term Delivery: Episiotomy: none Laceration: 2nd degree Other procedures: none complications: none Discharge diagnosis: IUP at term delivered baby: female Hospital course: Uncomplicated Condition at discharge: Stable Disposition: DC-01 TO HOME OR SELFCARE - Discharge Diagnoses (1) Status post normal vaginal delivery Status: Acute (2) Chronic hypertension affecting Status: Acute Comment: Continue Labetalol 100mg PO BID (3) Anemia due to blood loss, acute Status: Acute Comment: Asymptomatic Continue iron therapy Encouraged iron-rich foods (4) Encounter for other general counseling and advice on contraception Status: Acute (5) Encounter for initial prescription of injectable contraceptive Status: Acute Plan - Discharge Medications Prescriptions: Ferrous Sulfate [Feosol 325 MG tab] 325 mg PO BID #60 tablet Labetalol [Labetalol 100mg TAB] 100 mg PO BID #30 tablet - Provider Discharge Summary Activity: routine, no sex for 6 weeks, no heavy lifting 4 weeks, no strenuous exercise Diet: routine Instructions: routine Additional instructions: [] Smoking cessation referral if applicable(refer to patient education folder for contact #) [] Refer to [facility] Booklet Call your doctor immediately for: * Fever > 100.5 * Heavy vaginal bleeding ( >1 pad per hour) * Severe persistent headache * Shortness of breath * Reddened, hot, painful area to leg or breast * Drainage or odor from incision. * Keep incision clean and dry at all times and follow doctor's instructions regarding bathing/showering - Follow up plan Follow up: ABRAHAM GALINDO MD [Primary Care Provider] - 7 Days (Follow up with INSIDE SALES ACCOUNT MANAGER as needed or in 1 week for BP check)
[2019-04-01] MEDS ORDERED: DEPO-PROVERA (CONTRACEPTION) IM NR (10:30)
[2019-04-01 17:29] VITALS: BP 141/90
== END 2019-04-01 17:00 | disposition home or self-care (01) | DRG 806 ==
LOC: EEVIPCON 16:37 → TRG 16:37 → LD 16:38 → TRG 17:22 → LD 17:23 → OB 03-30 20:24
PROVIDERS: ADMIT Obstetrics & Gynecology; ATTEND Obstetrics & Gynecology
PROC: 10E0XZZ Delivery of Products of Conception, External Approach (ICD-10-PCS; principal; 2019-03-30)
PROC: 0KQM0ZZ Repair Perineum Muscle, Open Approach (ICD-10-PCS; 2019-03-30)
PROC: 3E0P7VZ Introduction of Hormone into Female Reproductive, Via Natural or Artificial Opening (ICD-10-PCS; 2019-03-30)
PROC: 3E0R3BZ Introduction of Anesthetic Agent into Spinal Canal, Percutaneous Approach (ICD-10-PCS; 2019-03-30)
PROC: 00HU33Z Insertion of Infusion Device into Spinal Canal, Percutaneous Approach (ICD-10-PCS; 2019-03-30)
DX: O99.824 Streptococcus B carrier state complicating childbirth (principal); D62 Acute posthemorrhagic anemia; Z37.0 Single live birth; O69.1XX0 Labor and delivery complicated by cord around neck, with compression, not applicable or unspecified; O10.92 Unspecified pre-existing hypertension complicating childbirth; O70.1 Second degree perineal laceration during delivery; O99.02 Anemia complicating childbirth; Z83.3 Family history of diabetes mellitus; Z3A.39 39 weeks gestation of pregnancy; Z82.49 Family history of ischemic heart disease and other diseases of the circulatory system; Z82.3 Family history of stroke; Z80.3 Family history of malignant neoplasm of breast; Z79.899 Other long term (current) drug therapy
CPT/HCPCS: 36415; 59200; 80307; 81001; 82565; 83615; 84450; 84460; 84550; 85014; 85018; 85025; 86592; 86706; 86762; 86803; 86850; 86900; 86901; 87116; 87806; G0378; A6250; J0290; J0595; J1050; J1750; J2590; J3010; J7120